=== PATIENT | male | born 1970 | race Caucasian/White ===

== ENCOUNTER 2016-11-04 02:06 | Emergency (ER) | payer BC ==
[2016-11-04 02:25] LABS: HEMOGLOBIN 14.6 gm/dl (14.0-17.5); RED BLOOD COUNT 4.78 M/UL (4.20-5.50); WHITE BLOOD COUNT 8.3 K/UL (4.5-11.0)
[2016-11-04 02:44] LABS: BUN/CREATININE RATIO 17 (0-10)
== END 2016-11-04 06:59 | disposition home or self-care (01) ==
LOC: ER1 02:06
PROVIDERS: Emergency Medicine
DX: J18.9 Pneumonia, unspecified organism (principal)
CPT/HCPCS: 36415; 71020; 80053; 81001; 82550; 82553; 83605; 83874; 84484; 85025; 87040; 87081; 87086; 87880; 93005; 96361; 96374; 96375; 99284; J0696; J1885; J2405; J7030; J7050